=== PATIENT | female | born 1990 | race Caucasian/White ===

== ENCOUNTER 2017-01-13 09:12 | Emergency (ER) | payer BC, MEDICAID ==
[2017-01-13] MEDS ORDERED: Prochlorperazine 10 MG/2 ML SDV IVPUSH ONE (09:48)
[2017-01-13] MEDS ORDERED: diphenhydrAMINE 50 MG/ML SDV IVPUSH ONE (09:48)
[2017-01-13] MEDS ORDERED: Ketorolac 30 MG/ML SDV IVPUSH ONE (09:48)
[2017-01-13] MEDS ORDERED: Sodium Chloride 0.9% 1,000 ML IV SCH (10:00)
--- NOTE | 2017-01-13 10:04 | EDM.PDOC ---
ED HPI GENERAL MEDICAL PROBLEM - General Chief Complaint: Headache Stated Complaint: MIGRAINE Time Seen by Provider: 01/13/17 09:54 Source of Information: Reports: Patient, RN Notes Reviewed History Limitations: Reports: No Limitations - History of Present Illness INITIAL COMMENTS - FREE TEXT/NARRATIVE: 26-year-old female presents emergency department day complaint headache, she does have a history of migraines usually gets a severe migraine about every other month this migraine is typical for her when they get severe pain is predominantly behind the left eye on the left side of the head does have nausea and photophobia only prophylactic medication she uses is Excedrin Left Headache Pain Score (Numeric/FACES): 9 - Related Data Allergies Allergy/AdvReac Type Severity Reaction Status Date / Time amoxicillin Allergy Cannot Verified 01/13/17 09:27 Remember amoxicillin trihydrate Allergy Cannot Verified 01/13/17 09:27 [From Amoxil] Remember insulin aspart [From Novolog] Allergy Cannot Verified 01/13/17 09:27 Remember insulin glulisine Allergy Cannot Verified 01/13/17 09:27 [From Apidra] Remember morphine Allergy Cannot Verified 01/13/17 09:27 Remember Home Meds: Home Meds Hydrochlorothiazide [Hydrochlorothiazide] 12.5 mg PO DAILY 12/29/15 [History] Insulin Detemir [Levemir Flextouch] 30 units SQ BID 12/29/15 [History] Insulin Lispro [HumaLOG] 20 units SQ ASDIRECTED 12/29/15 [History] Naproxen [Naprosyn] 375 mg PO BID 12/29/15 [History] metFORMIN HCl [Metformin HCl ER] 1,000 mg PO BID 07/23/16 [History] Acetaminophen [Tylenol Extra Strength] 1,000 mg PO ASDIRECTED 01/13/17 [History] Ibuprofen 400 mg PO ASDIRECTED 01/13/17 [History] Past Medical History Cardiovascular History: Reports: Heart Murmur, Hypertension 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: Neurological History: Reports: Migraines Psychiatric History: Reports: Anxiety, Bipolar, Depression Endocrine/Metabolic History: Reports: Diabetes, Type I - Infectious Disease History Infectious Disease History: Reports: Chicken Pox - Past Surgical History Female Surgical History: Reports: Section, Tubal Ligation Social & Family History - Tobacco Use Smoking Status *Q: Light Tobacco Smoker Years of Tobacco use: 5 Packs/Tins Daily: 0.1 - Caffeine Use Caffeine Use: Reports: Soda, Tea - Recreational Drug Use Recreational Drug Use: No ED ROS GENERAL - Review of Systems Review Of Systems: See Below Constitutional: Reports: No Symptoms HEENT: Reports: Eye Pain Respiratory: Reports: No Symptoms Cardiovascular: Reports: Dyspnea on Exertion GI/Abdominal: Reports: Nausea, Vomiting Neurological: Reports: Headache ED EXAM, NEURO - Physical Exam Exam: See Below Exam Limited By: No Limitations General Appearance: Alert, WD/WN, No Apparent Distress Eye Exam: Bilateral Eye: Normal Fundi, Normal Inspection, PERRL Respiratory/Chest: No Respiratory Distress Neurological: Alert, Normal Mood/Affect, CN II-XII Intact Course - Vital Signs Last Recorded V/S: Last Vital Signs Temp 96.3 F 01/13/17 09:30 Pulse 83 01/13/17 09:30 Resp 16 01/13/17 09:30 BP 130/86 01/13/17 09:30 Pulse Ox 96 01/13/17 09:30 - Orders/Labs/Meds Orders: Active Orders 24 hr Category Date Time Status Sodium Chloride 0.9% [Normal Saline] 1,000 ml Med 01/13/17 10:00 Active IV ASDIRECTED Medication Orders Sodium Chloride (Normal Saline) 1,000 mls @ 500 mls/hr IV ASDIRECTED KARTIK Last Admin: 01/13/17 09:53 Dose: 500 mls/hr Meds: Medications Generic Name Dose Route Start Last Admin Trade Name Freq PRN Reason Stop Dose Admin Sodium Chloride 1,000 mls @ 500 mls/hr 01/13/17 10:00 01/13/17 09:53 Normal Saline IV 500 mls/hr ASDIRECTED KARTIK Administration Discontinued Medications Generic Name Dose Route Start Last Admin Trade Name Freq PRN Reason Stop Dose Admin Diphenhydramine HCl 25 mg 01/13/17 09:48 01/13/17 09:59 Benadryl IVPUSH 01/13/17 09:49 25 mg ONETIME ONE Administration Ketorolac Tromethamine 30 mg 01/13/17 09:48 01/13/17 10:03 Toradol IVPUSH 01/13/17 09:49 30 mg ONETIME ONE Administration Prochlorperazine Edisylate 5 mg 01/13/17 09:48 01/13/17 09:56 Compazine IVPUSH 01/13/17 09:49 5 mg ONETIME ONE Administration Departure - Departure Time of Disposition: 10:30 Disposition: Home, Self-Care 01 Condition: good Clinical Impression: Migraine - Discharge Information Forms: ED Department Discharge Additional Instructions: Continue with regular medications, Please followup with your primary care provider in 3-5 days if not better, please call return to the emergency department with worsening of symptoms. - My Orders Last 24 Hours: My Active Orders 01/13/17 10:00 Sodium Chloride 0.9% [Normal Saline] 1,000 ml IV ASDIRECTED - Assessment/Plan Last 24 Hours: My Active Orders 01/13/17 10:00 Sodium Chloride 0.9% [Normal Saline] 1,000 ml IV ASDIRECTED Plan: Assessment Acuity = acute Site and laterality = migraine type headache Etiology = unknown etiology Manifestations = photophobia, nausea, vomiting Location of injury = home Lab values = none Plan She had significant improvement combination Toradol, Benadryl, Compazine as well as IV fluids, plan is to discharge home followup primary care 3-5 days if not better Patient was in agreement with the plan all questions were answered, they were instructed to return to the emergency department or call for worsening symptoms. This note was dictated using [employer] voice recognition software please call with any questions.
[2017-01-13 10:31] VITALS: BP 114/73
== END 2017-01-13 10:43 | disposition home or self-care (01) ==
LOC: JP.ED 09:12
DX: G43.909 Migraine, unspecified, not intractable, without status migrainosus (principal); I10 Essential (primary) hypertension; E10.9 Type 1 diabetes mellitus without complications; F41.9 Anxiety disorder, unspecified; F17.210 Nicotine dependence, cigarettes, uncomplicated; F32.9 Major depressive disorder, single episode, unspecified; Z88.1 Allergy status to other antibiotic agents; Z88.8 Allergy status to other drugs, medicaments and biological substances; Z79.899 Other long term (current) drug therapy; Z79.84 Long term (current) use of oral hypoglycemic drugs; Z79.4 Long term (current) use of insulin
CPT/HCPCS: 96361; 96374; 96375; 99283; J0780; J1200; J1885; J7040; 99284

== ENCOUNTER 2017-01-27 10:33 | Emergency (ER) | payer BC, MEDICAID ==
[2017-01-27 11:09] VITALS: BP 137/82
[2017-01-27] MEDS ORDERED: Prochlorperazine 10 MG/2 ML SDV IVPUSH ONE (11:14)
[2017-01-27] MEDS ORDERED: diphenhydrAMINE 50 MG/ML SDV IVPUSH ONE (11:15)
[2017-01-27] MEDS ORDERED: Sodium Chloride 0.9% 1,000 ML IV SCH (11:15)
[2017-01-27] MEDS ORDERED: Ketorolac 30 MG/ML SDV IVPUSH ONE (11:15)
--- NOTE | 2017-01-27 11:20 | EDM.PDOC ---
ED HPI GENERAL MEDICAL PROBLEM - General Chief Complaint: Headache Stated Complaint: MIGRAINE Time Seen by Provider: 01/27/17 11:06 Source of Information: Reports: Patient - History of Present Illness INITIAL COMMENTS - FREE TEXT/NARRATIVE: 26 yo female, type I diabetic, with hx of migraines presents to the ER with right sided migraine. she states that this is her typical migraine. woke her at 0600 this morning took home medication of acetaminophen without relief. very nauseated and has been vomiting all morning. Current headache is moderate on her normal severity scale. Last BS she checked at home was 103 she does not feel current migraine is related to her diabetes. Denies fever, chills, sore throat, stiff neck, unilateral weakness or numbness. Headache Pain Score (Numeric/FACES): 8 - Related Data Allergies Allergy/AdvReac Type Severity Reaction Status Date / Time amoxicillin Allergy Cannot Verified 01/27/17 11:02 Remember amoxicillin trihydrate Allergy Cannot Verified 01/27/17 11:02 [From Amoxil] Remember insulin aspart [From Novolog] Allergy Cannot Verified 01/27/17 11:02 Remember insulin glulisine Allergy Cannot Verified 01/27/17 11:02 [From Apidra] Remember morphine Allergy Cannot Verified 01/27/17 11:02 Remember Home Meds: Home Meds Hydrochlorothiazide [Hydrochlorothiazide] 12.5 mg PO DAILY 12/29/15 [History] Insulin Detemir [Levemir Flextouch] 30 units SQ BID 12/29/15 [History] Insulin Lispro [HumaLOG] 20 units SQ ASDIRECTED 12/29/15 [History] Naproxen [Naprosyn] 375 mg PO BID 12/29/15 [History] metFORMIN HCl [Metformin HCl ER] 1,000 mg PO BID 07/23/16 [History] Acetaminophen [Tylenol Extra Strength] 1,000 mg PO ASDIRECTED 01/13/17 [History] Ibuprofen 400 mg PO ASDIRECTED 01/13/17 [History] Past Medical History Cardiovascular History: Reports: Heart Murmur, Hypertension 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: Neurological History: Reports: Migraines Psychiatric History: Reports: Anxiety, Bipolar, Depression Endocrine/Metabolic History: Reports: Diabetes, Type I - Infectious Disease History Infectious Disease History: Reports: Chicken Pox - Past Surgical History Female Surgical History: Reports: Section, Tubal Ligation Social & Family History - Tobacco Use Smoking Status *Q: Current Some Day Smoker Years of Tobacco use: 5 Packs/Tins Daily: 0.2 Used Tobacco, but Quit: No - Caffeine Use Caffeine Use: Reports: Energy Drinks, Soda, Tea - Recreational Drug Use Recreational Drug Use: No ED ROS GENERAL - Review of Systems Review Of Systems: See Below Constitutional: Denies: Fever, Chills, Malaise, Night Sweats HEENT: Denies: Sinus Problem, Throat Pain, Vision Change Respiratory: Denies: Shortness of Breath, Wheezing Cardiovascular: Denies: Chest Pain Endocrine: Denies: Low Glucose, Polyuria GI/Abdominal: Reports: Nausea, Vomiting. Denies: Abdominal Pain, Diarrhea Musculoskeletal: Denies: Neck Pain Skin: Denies: Rash Neurological: Reports: Headache. Denies: Seizure, Syncope ED EXAM, GI/ABD - Physical Exam Exam: See Below Exam Limited By: No Limitations General Appearance: Alert, WD/WN, No Apparent Distress Eyes: Bilateral: Normal Appearance Head: Atraumatic, Normocephalic Neck: Normal Inspection, Supple, Non-Tender, Full Range of Motion. No: Lymphadenopathy (R), Lymphadenopathy (L) Respiratory/Chest: No Respiratory Distress, Lungs Clear, Normal Breath Sounds. No: Crackles, Rhonchi, Wheezing Cardiovascular: Regular Rate, Rhythm, No Edema GI/Abdominal: Soft, Non-Tender Neurological: Alert, Oriented, CN II-XII Intact, Normal Cognition, Normal Gait Psychiatric: Normal Affect, Normal Mood Skin Exam: Warm, Dry, Intact, No Rash Lymphatic: No Adenopathy Course - Vital Signs Last Recorded V/S: Last Vital Signs Temp 36.4 C 01/27/17 11:08 Pulse 93 01/27/17 11:08 Resp 16 01/27/17 11:08 BP 137/82 01/27/17 11:08 Pulse Ox 96 01/27/17 11:08 - Orders/Labs/Meds Orders: Active Orders 24 hr Category Date Time Status Sodium Chloride 0.9% [Normal Saline] 1,000 ml Med 01/27/17 11:15 Active IV ASDIRECTED Medication Orders Sodium Chloride (Normal Saline) 1,000 mls @ 999 mls/hr IV ASDIRECTED KARTIK Last Admin: 01/27/17 11:29 Dose: 999 mls/hr Meds: Medications Generic Name Dose Route Start Last Admin Trade Name Kel PRN Reason Stop Dose Admin Sodium Chloride 1,000 mls @ 999 mls/hr 01/27/17 11:15 01/27/17 11:29 Normal Saline IV 999 mls/hr ASDIRECTED KARTIK Administration Discontinued Medications Generic Name Dose Route Start Last Admin Trade Name Kel PRN Reason Stop Dose Admin Diphenhydramine HCl 25 mg 01/27/17 11:15 01/27/17 11:31 Benadryl IVPUSH 01/27/17 11:16 25 mg ONETIME ONE Administration Ketorolac Tromethamine 30 mg 01/27/17 11:15 01/27/17 11:37 Toradol IVPUSH 01/27/17 11:16 30 mg ONETIME ONE Administration Prochlorperazine Edisylate 10 mg 01/27/17 11:14 01/27/17 11:33 Compazine IVPUSH 01/27/17 11:15 10 mg ONETIME ONE Administration - Re-Assessments/Exams Free Text/Narrative Re-Assessment/Exam: 01/27/17 11:46 migraine improved but not resolved. nausea improved but not resolved. Requesting to go home Departure - Departure Time of Disposition: 11:47 Disposition: Home, Self-Care 01 Condition: good Clinical Impression: Migraine Qualifiers: Migraine type: chronic without aura Status migrainosus presence: without status migrainosus Intractability: not intractable Qualified Code(s): G43.709 - Chronic migraine without aura, not intractable, without status migrainosus - Discharge Information Forms: ED Department Discharge Additional Instructions: sleep increase fluid intake with goal of 1.5 liters of fluids daily follow-up with primary care provider to establish home abortive protocol for migraines - My Orders Last 24 Hours: My Active Orders 01/27/17 11:15 Sodium Chloride 0.9% [Normal Saline] 1,000 ml IV ASDIRECTED - Assessment/Plan Last 24 Hours: My Active Orders 01/27/17 11:15 Sodium Chloride 0.9% [Normal Saline] 1,000 ml IV ASDIRECTED
== END 2017-01-27 11:55 | disposition home or self-care (01) ==
LOC: JP.ED 10:33
DX: G43.709 Chronic migraine without aura, not intractable, without status migrainosus (principal); F41.9 Anxiety disorder, unspecified; F31.0 Bipolar disorder, current episode hypomanic; F32.9 Major depressive disorder, single episode, unspecified; I10 Essential (primary) hypertension; E10.9 Type 1 diabetes mellitus without complications; F17.210 Nicotine dependence, cigarettes, uncomplicated; Z79.4 Long term (current) use of insulin; Z79.899 Other long term (current) drug therapy; Z88.1 Allergy status to other antibiotic agents; Z88.5 Allergy status to narcotic agent; Z88.8 Allergy status to other drugs, medicaments and biological substances; Z98.51 Tubal ligation status; Z98.890 Other specified postprocedural states
CPT/HCPCS: 96361; 96374; 96375; 99283; J0780; J1200; J1885; J7040; 99284

== ENCOUNTER 2017-03-22 10:22 | Emergency (ER) | payer BC, MEDICAID ==
[2017-03-22] MEDS ORDERED: Sodium Chloride 0.9% 1,000 ML IV SCH (10:45)
[2017-03-22] MEDS ORDERED: Prochlorperazine 10 MG in Sodium Chloride 0.9% 50 ML IV ONE (10:51)
[2017-03-22] MEDS ORDERED: Ketorolac 30 MG/ML SDV IVPUSH ONE (10:52)
[2017-03-22] MEDS ORDERED: diphenhydrAMINE 50 MG/ML SDV IVPUSH ONE (10:52)
[2017-03-22] MEDS ORDERED: Prochlorperazine 10 MG/2 ML SDV IVPUSH ONE (10:55)
--- NOTE | 2017-03-22 10:57 | EDM.PDOC ---
ED HPI GENERAL MEDICAL PROBLEM - General Chief Complaint: Diabetic Complaint Stated Complaint: HEADACHE Time Seen by Provider: 03/22/17 10:54 Source of Information: Reports: Patient, Family History Limitations: Reports: No Limitations - History of Present Illness INITIAL COMMENTS - FREE TEXT/NARRATIVE: pt started out with a severe left sided headache. Sh hs been vomiting this am. She is a type one diabetic since she was age 10. Onset: Today Duration: Hour(s): Location: Reports: Head Associated Symptoms: Reports: Headaches, Nausea/Vomiting Headache Pain Score (Numeric/FACES): 9 - Related Data Allergies Allergy/AdvReac Type Severity Reaction Status Date / Time amoxicillin Allergy Cannot Verified 03/22/17 10:38 Remember amoxicillin trihydrate Allergy Cannot Verified 03/22/17 10:38 [From Amoxil] Remember insulin aspart [From Novolog] Allergy Cannot Verified 03/22/17 10:38 Remember insulin glulisine Allergy Cannot Verified 03/22/17 10:38 [From Apidra] Remember morphine Allergy Cannot Verified 03/22/17 10:38 Remember Home Meds: Home Meds Hydrochlorothiazide [Hydrochlorothiazide] 12.5 mg PO DAILY 12/29/15 [History] Insulin Detemir [Levemir Flextouch] 30 units SQ BID 12/29/15 [History] Insulin Lispro [HumaLOG] 20 units SQ ASDIRECTED 12/29/15 [History] Acetaminophen [Tylenol Extra Strength] 1,000 mg PO ASDIRECTED 01/13/17 [History] Ibuprofen 400 mg PO ASDIRECTED 01/13/17 [History] Past Medical History Cardiovascular History: Reports: Heart Murmur, Hypertension 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: Neurological History: Reports: Migraines Psychiatric History: Reports: Anxiety, Bipolar, Depression Endocrine/Metabolic History: Reports: Diabetes, Type I - Infectious Disease History Infectious Disease History: Reports: Chicken Pox - Past Surgical History Female Surgical History: Reports: Section, Tubal Ligation Social & Family History - Tobacco Use Smoking Status *Q: Never Smoker Years of Tobacco use: 5 Packs/Tins Daily: 0.2 Used Tobacco, but Quit: No - Caffeine Use Caffeine Use: Reports: Energy Drinks, Soda, Tea - Recreational Drug Use Recreational Drug Use: No ED ROS GENERAL - Review of Systems Review Of Systems: See Below Constitutional: Reports: Weakness, Decreased Appetite HEENT: Reports: No Symptoms, Other ( lite sensitivity) Respiratory: Reports: No Symptoms Cardiovascular: Reports: No Symptoms Endocrine: Reports: No Symptoms GI/Abdominal: Reports: Nausea, Vomiting : Reports: No Symptoms Musculoskeletal: Reports: No Symptoms Skin: Reports: No Symptoms Neurological: Reports: Headache, Other (pt has a severe left sided headache. ) Psychiatric: Reports: Anxiety ED EXAM GENERAL NO PERIP PULSE - Physical Exam Exam: See Below Text/Narrative:: pt arrived thinking her sugar was low but it was 115. She had a severe left sided headache. She has a history of migraine headaches. Exam Limited By: No Limitations General Appearance: Alert, Anxious, Moderate Distress, Other (pupils are equal andf reactive. She thinks her headache is typical for her migraines except it is on the left side. ) Ears: Normal TMs Nose: Normal Inspection Throat/Mouth: Normal Inspection Head: Atraumatic Neck: Normal Inspection Respiratory/Chest: No Respiratory Distress Cardiovascular: Regular Rate, Rhythm, Tachycardia GI/Abdominal: Soft, Non-Tender (Female) Exam: Deferred Rectal (Female) Exam: Deferred Back Exam: Normal Inspection Extremities: Normal Inspection Neurological: Alert, Oriented, Normal Cognition Psychiatric: Anxious Course - Vital Signs Last Recorded V/S: Last Vital Signs Temp 36.7 C 03/22/17 10:35 Pulse 99 03/22/17 10:35 Resp 20 03/22/17 10:35 BP 128/81 03/22/17 10:35 Pulse Ox 96 03/22/17 10:35 - Orders/Labs/Meds Orders: Active Orders 24 hr Category Date Time Status UA W/MICROSCOPIC [URIN] Urgent Lab 03/22/17 10:44 Uncollected Sodium Chloride 0.9% [Normal Saline] 1,000 ml Med 03/22/17 10:45 Active IV ASDIRECTED Medication Orders Sodium Chloride (Normal Saline) 1,000 mls @ 999 mls/hr IV ASDIRECTED KARTIK Last Admin: 03/22/17 11:04 Dose: 999 mls/hr Labs: Laboratory Tests 03/22/17 03/22/17 Range/Units 10:49 10:49 WBC 16.1 H (4.5-11.0) K/uL RBC 5.55 H (3.30-5.50) M/uL Hgb 15.5 H (12.0-15.0) g/dL Hct 44.9 (36.0-48.0) % MCV 81 (80-98) fL MCH 28 (27-31) pg MCHC 35 (32-36) % Plt Count 189 (150-400) K/uL Neut % (Auto) 92 H (36-66) % Lymph % (Auto) 4 L (24-44) % Davidson % (Auto) 4 (2-6) % Eos % (Auto) 0 L (2-4) % Baso % (Auto) 0 (0-1) % Sodium 138 L (140-148) mmol/L Potassium 3.4 L (3.6-5.2) mmol/L Chloride 101 (100-108) mmol/L Carbon Dioxide 26 (21-32) mmol/L Anion Gap 14.4 H (5.0-14.0) mmol/L BUN 16 (7-18) mg/dL Creatinine 0.9 (0.6-1.0) mg/dL Est Cr Clr Drug Dosing 73.84 mL/min Estimated GFR (MDRD) > 60 (>60) Glucose 116 H (74-106) mg/dL Calcium 9.2 (8.5-10.1) mg/dL Total Bilirubin 0.4 (0.2-1.0) mg/dL AST 17 (15-37) U/L ALT 18 (12-78) U/L Alkaline Phosphatase 103 (46-116) U/L Total Protein 8.0 (6.4-8.2) g/dL Albumin 4.0 (3.4-5.0) g/dL Globulin 4.0 H (2.3-3.5) g/dL Albumin/Globulin Ratio 1.0 L (1.2-2.2) Meds: Medications Generic Name Dose Route Start Last Admin Trade Name Freq PRN Reason Stop Dose Admin Sodium Chloride 1,000 mls @ 999 mls/hr 03/22/17 10:45 03/22/17 11:04 Normal Saline IV 999 mls/hr ASDIRECTED KARTIK Administration Discontinued Medications Generic Name Dose Route Start Last Admin Trade Name Freq PRN Reason Stop Dose Admin Diphenhydramine HCl 50 mg 03/22/17 10:52 03/22/17 11:01 Benadryl IVPUSH 03/22/17 10:53 50 mg ONETIME ONE Administration Prochlorperazine Edisylate 10 52 mls @ 150 mls/hr 03/22/17 10:51 mg/ Sodium Chloride IV 03/22/17 11:11 ONETIME ONE Ketorolac Tromethamine 30 mg 03/22/17 10:52 03/22/17 11:05 Toradol IVPUSH 03/22/17 10:53 30 mg ONETIME ONE Administration Prochlorperazine Edisylate 10 mg 03/22/17 10:55 03/22/17 11:07 Compazine IVPUSH 03/22/17 10:56 10 mg ONETIME ONE Administration - Re-Assessments/Exams Free Text/Narrative Re-Assessment/Exam: 03/22/17 11:46 pt was given a liter of fluid and compazine 10mg iv, benadryl 50mg iv, and torodol 30mg iv. Her headache is down to a 2. She insists on leaving at this time. She was given some 7 up and is tolerating that. Departure - Departure Time of Disposition: 11:48 Disposition: Home, Self-Care 01 Condition: Fair Clinical Impression: Dehydration, Type 1 diabetes Migraine headache Qualifiers: Migraine type: chronic without aura Status migrainosus presence: without status migrainosus Intractability: not intractable Qualified Code(s): G43.709 - Chronic migraine without aura, not intractable, without status migrainosus - Discharge Information Forms: ED Department Discharge Care Plan Goals: rest, push fluids, zoforan 4mg subling if further nausea, take lantus 5 units and try to eat then use the sliding scale for what ever elevated bs occurs. - My Orders Last 24 Hours: My Active Orders 03/22/17 10:44 UA W/MICROSCOPIC [URIN] Urgent 03/22/17 10:45 Sodium Chloride 0.9% [Normal Saline] 1,000 ml IV ASDIRECTED - Assessment/Plan Last 24 Hours: My Active Orders 03/22/17 10:44 UA W/MICROSCOPIC [URIN] Urgent 03/22/17 10:45 Sodium Chloride 0.9% [Normal Saline] 1,000 ml IV ASDIRECTED
[2017-03-22 11:44] VITALS: BP 127/78
== END 2017-03-22 12:06 | disposition home or self-care (01) ==
LOC: JP.ED 10:22
DX: G43.709 Chronic migraine without aura, not intractable, without status migrainosus (principal); E86.0 Dehydration; E10.9 Type 1 diabetes mellitus without complications; I10 Essential (primary) hypertension; Z79.4 Long term (current) use of insulin; Z79.899 Other long term (current) drug therapy; Z88.1 Allergy status to other antibiotic agents; Z88.6 Allergy status to analgesic agent
CPT/HCPCS: 36415; 80053; 82962; 85025; 96361; 96365; 96375; 99284; J0780; J1200; J1885; J7040

== ENCOUNTER 2018-05-04 09:56 | Emergency (ER) | payer BC, MEDICAID ==
[2018-05-04 10:12] VITALS: BP 127/90
[2018-05-04] MEDS ORDERED: SUMAtriptan 6 MG/0.5 ML SDV SUBCUT ONE (10:17)
--- NOTE | 2018-05-04 10:45 | EDM.PDOC ---
ED HPI GENERAL MEDICAL PROBLEM - General Chief Complaint: Headache Stated Complaint: BAD MIGRAINE Time Seen by Provider: 05/04/18 10:15 Source of Information: Reports: Patient History Limitations: Reports: No Limitations - History of Present Illness INITIAL COMMENTS - FREE TEXT/NARRATIVE: 28-year-old female, type I diabetic with a history of migraine headaches woke up this morning with an intense right sided periorbital migraine. She has nausea and vomiting and photophobia. The headache is very typical of her previous migraines. No fevers or chills, she has not been ill lately. A glucometer check was 270 and she took her usual dose of insulin. Onset: Unknown/Unsure (Woke up with her headache) Location: Reports: Head (Right periorbital area) Quality: Reports: Other (Pounding) Severity: Moderate Improves with: Reports: None Worsens with: Reports: Other (Somewhat photophobic) Associated Symptoms: Reports: Nausea/Vomiting. Denies: Chest Pain, Cough, Fever /Chills, Shortness of Breath Headache Pain Score (Numeric/FACES): 7 - Related Data Allergies Allergy/AdvReac Type Severity Reaction Status Date / Time amoxicillin Allergy Cannot Verified 05/04/18 10:03 Remember amoxicillin trihydrate Allergy Cannot Verified 05/04/18 10:03 [From Amoxil] Remember diphenhydramine Allergy Drowsiness Verified 05/04/18 10:10 [From Benadryl] insulin aspart [From Novolog] Allergy Cannot Verified 05/04/18 10:03 Remember insulin glulisine Allergy Cannot Verified 05/04/18 10:03 [From Apidra] Remember morphine Allergy Cannot Verified 05/04/18 10:03 Remember Home Meds: Home Meds Hydrochlorothiazide 12.5 mg PO DAILY 12/29/15 [History] Insulin Detemir [Levemir Flextouch] 30 units SQ BID 12/29/15 [History] Insulin Lispro [HumaLOG] 20 units SQ ASDIRECTED 12/29/15 [History] Acetaminophen [Tylenol Extra Strength] 1,000 mg PO ASDIRECTED 01/13/17 [History] Ibuprofen 400 mg PO ASDIRECTED 01/13/17 [History] Meloxicam 1 tab PO DAILY 05/04/18 [History] Past Medical History Cardiovascular History: Reports: Heart Murmur, Hypertension 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: Neurological History: Reports: Migraines Psychiatric History: Reports: Anxiety, Bipolar, Depression Endocrine/Metabolic History: Reports: Diabetes, Type I - Infectious Disease History Infectious Disease History: Reports: Chicken Pox - Past Surgical History Female Surgical History: Reports: Section, Tubal Ligation Social & Family History - Tobacco Use Smoking Status *Q: Current Every Day Smoker Years of Tobacco use: 9 Packs/Tins Daily: 0.2 Used Tobacco, but Quit: No Second Hand Smoke Exposure: Yes - Caffeine Use Caffeine Use: Reports: Coffee, Soda - Alcohol Use Days Per Week of Alcohol Use: 0 - Recreational Drug Use Recreational Drug Use: No ED ROS GENERAL - Review of Systems Review Of Systems: See Below Constitutional: Denies: Fever, Chills Respiratory: Denies: Shortness of Breath Cardiovascular: Denies: Chest Pain GI/Abdominal: Reports: Nausea, Vomiting. Denies: Abdominal Pain Neurological: Reports: Headache - Physical Exam Exam: See Below Exam Limited By: No Limitations General Appearance: Alert, Mild Distress Eye Exam: Bilateral Eye: PERRL Head Exam: Atraumatic Respiratory/Chest: No Respiratory Distress Neuro Exam (Abbreviated): Alert, Oriented, Other (Ambulates without difficulty, no asymmetric weakness or deficits) Course - Vital Signs Last Recorded V/S: Last Vital Signs Temp 96 F 05/04/18 10:11 Pulse 95 05/04/18 10:11 Resp 20 05/04/18 10:11 BP 127/90 05/04/18 10:11 Pulse Ox 98 05/04/18 10:11 - Orders/Labs/Meds Meds: Medications Discontinued Medications Generic Name Dose Route Start Last Admin Trade Name Kel PRN Reason Stop Dose Admin Ondansetron HCl 4 mg 05/04/18 10:47 05/04/18 10:55 Zofran Odt PO 05/04/18 10:48 4 mg ONETIME ONE Administration Sumatriptan Succinate 6 mg 05/04/18 10:17 05/04/18 10:32 Imitrex SUBCUT 05/04/18 10:18 6 mg ONETIME ONE Administration - Re-Assessments/Exams Free Text/Narrative Re-Assessment/Exam: 05/04/18 10:45 Patient was given 6 mg subcutaneous Imitrex. She was also given 4 mg of sublingual Zofran 05/04/18 11:11 Within 30 minutes after the Imitrex the patient's headache was almost gone. She was discharged with a prescription with 2 more subcutaneous doses of Imitrex along with 5 doses of sublingual Zofran. Departure - Departure Time of Disposition: 11:18 Disposition: Home, Self-Care 01 Condition: Good Clinical Impression: Migraine - Discharge Information Instructions: Migraine Headache, [id number] Referrals: Kathya Fish PA [Primary Care Provider] - Forms: ED Department Discharge Care Plan Goals: Rest today, increase activity as tolerated and use Imitrex and Zofran to treat future headaches. Return if worsening despite treatment, and discuss additional Imitrex prescriptions with your regular doctor if beneficial.
[2018-05-04] MEDS ORDERED: Ondansetron 4 MG Tab.DIS PO ONE (10:47)
== END 2018-05-04 11:18 | disposition home or self-care (01) ==
LOC: JP.ED 09:56
DX: G43.909 Migraine, unspecified, not intractable, without status migrainosus (principal); E10.9 Type 1 diabetes mellitus without complications; F17.210 Nicotine dependence, cigarettes, uncomplicated; Z79.899 Other long term (current) drug therapy; Z88.5 Allergy status to narcotic agent; Z88.8 Allergy status to other drugs, medicaments and biological substances; Z88.1 Allergy status to other antibiotic agents
CPT/HCPCS: 96372; 99284; A9270; J3030

== ENCOUNTER 2022-03-19 19:06 | Emergency (ER) | payer MEDICAID ==
[2022-03-19 19:41] VITALS: BP 130/94; PULSE 85
== END 2022-03-19 21:25 | disposition home or self-care (01) ==
LOC: JP.ED 19:06
DX: R07.89 Other chest pain (principal); K22.4 Dyskinesia of esophagus; I10 Essential (primary) hypertension; E10.9 Type 1 diabetes mellitus without complications; F17.210 Nicotine dependence, cigarettes, uncomplicated; Z88.0 Allergy status to penicillin; Z88.8 Allergy status to other drugs, medicaments and biological substances; Z88.5 Allergy status to narcotic agent
CPT/HCPCS: 36415; 80048; 84484; 85025; 93005; 99285